=== PATIENT | female | born 1975 | race Caucasian/White ===

== ENCOUNTER 2020-11-15 08:45 | Emergency (ER) | payer MEDICAID ==
[~2020-11-15] VITALS: Ht 152.4 cm; Wt 126.0 kg
[~2020-11-15 08:45] MED LIST: AMLO10TA4 PO; LEVO75TA PO; LORA10TA7 PO; OMEP20CA4 PO
[2020-11-15 08:51] VITALS: BP 149/97
[2020-11-15] MEDS ORDERED: CYCL-1 PO (09:09)
[2020-11-15] MEDS ORDERED: IBUP-1984 PO (09:09)
[2020-11-15] MEDS ORDERED: orphenadrine citrate 60mg/2ml inj. IM ONE (09:10)
[2020-11-15] MEDS ORDERED: ketorolac tromethamine 15mg/ml inj. IM ONE (09:10)
== END 2020-11-15 09:29 | disposition home or self-care (01) ==
LOC: ER 08:45
DX: S39.012A Strain of muscle, fascia and tendon of lower back, initial encounter (principal); M54.89 Other dorsalgia; Z79.899 Other long term (current) drug therapy; X58.XXXA Exposure to other specified factors, initial encounter; Y93.89 Activity, other specified; Y92.89 Other specified places as the place of occurrence of the external cause; Y99.8 Other external cause status
CPT/HCPCS: 96372; 99284; J1885; J2360

== ENCOUNTER 2020-11-18 09:35 | Emergency (ER) | payer MEDICAID ==
[~2020-11-18] VITALS: Ht 152.4 cm; Wt 125.5 kg
[~2020-11-18 09:35] MED LIST changes: +CYCL-1 PO; +IBUP-1984 PO
[2020-11-18 09:43] VITALS: BP 141/88
== END 2020-11-18 11:41 | disposition home or self-care (01) ==
LOC: ER 09:36
DX: J06.9 Acute upper respiratory infection, unspecified (principal); Z20.822 Contact with and (suspected) exposure to COVID-19
CPT/HCPCS: 36415; 99283; U0003; U0005

== ENCOUNTER 2023-05-07 05:23 | Day surgery (SDC) | payer MEDICAID ==
[2023-05-01 10:49] LABS: BASOPHILS % (AUTO) 0.6 % (0-1); EOSINOPHILS # (AUTO) 0.2 X10'3 (0-0.9); LYMPHOCYTES # (AUTO) 1.5 X10'3 (1.1-4.8); LYMPHOCYTES % (AUTO) 21.6 % (21-51); MEAN CORPUSCULAR HEMOGLOBIN 27.8 PG (27.0-31.0); MEAN CORPUSCULAR HGB CONC 32.9 g/dL (33.0-36.5); MEAN CORPUSCULAR VOLUME 84.3 FL (78-98); MEAN PLATELET VOLUME 8.1 FL (7.4-10.4); MONOCYTES # (AUTO) 0.6 X10'3 (0-0.9); MONOCYTES % (AUTO) 8.9 % (2-12); NEUTROPHILS # (AUTO) 4.6 X10'3 (1.8-7.7); NEUTROPHILS % (AUTO) 65.9 % (42-75); PRE OP HEMATOCRIT 43.6 % (35.0-45.0); PRE OP HEMOGLOBIN 14.4 g/dL (12.0-16.0); PRE OP PLATELET COUNT 276 X10'3 (140-440); RED BLOOD COUNT 5.18 X10'6 (4.20-5.60); RED CELL DISTRIBUTION WIDTH 15.2 % (11.5-14.5)
[2023-05-01 11:03] LABS: HCG SERUM QL NEGATIVE
[2023-05-01 11:16] LABS: ALBUMIN 3.6 G/DL (3.4-5.0); ALBUMIN/GLOBULIN RATIO 0.9 (1.1-1.5); ALKALINE PHOSPHATASE 76 IU/L (46-116); BLOOD UREA NITROGEN 11 MG/DL (7-18); BUN/CREATININE RATIO 10.2 (10.0-20.0); CALCIUM 9.2 MG/DL (8.5-10.1); CHLORIDE 105 MMOL/L (99-107); CREATININE 1.08 MG/DL (0.40-0.90); PRE OP ALT 22 U/L (30-65); PRE OP ANION GAP 11 (8-16); PRE OP AST 17 U/L (10-37); PRE OP BILIRUB, TOTAL 0.5 MG/DL (0.0-1.0); PRE OP GLUCOSE 90 MG/DL (70-104); PRE OP POTASSIUM 3.9 MMOL/L (3.4-5.1); PRE OP SODIUM 141 MMOL/L (135-145); THYROID STIMULATING HORMONE 2.58 ulU/ml (0.34-4.50); TOTAL CARBON DIOXIDE 25.3 MMOL/L (24-32); TOTAL PROTEIN 7.4 G/DL (6.4-8.2); eGFR 55 ML/MIN
[~2023-05-07] VITALS: Ht 152.4 cm; Wt 129.1 kg
[~2023-05-07 05:23] MED LIST changes: +CETI-194 PO; -CYCL-1 PO; -IBUP-1984 PO; -LORA10TA7 PO; +MELO-100 PO
[2023-05-07 05:30] VITALS: BP 147/96; PULSE 82; RESP 16; TEMP 94.8; TEMP 97.8; O2SAT 99
[2023-05-07] MEDS: ceFAZolin inj. 3,000 MG in normal saline 100ml IV soln 100 ML IV ONE (05:39)
[2023-05-07] MEDS: famotidine 20mg tablet PO ONE (05:46)
[2023-05-07] MEDS: ringers solution, lacted 1,000 ML IV SCH (05:46)
[2023-05-07] MEDS ORDERED: BUPIVAcaine 0.5% inj/PF 60 ML ONE (06:55)
[2023-05-07] MEDS ORDERED: fentaNYL/PF 50MCG/1 ML 2ML syringe ONE (07:27)
[2023-05-07] MEDS ORDERED: MIDAZolam 1 MG/ML 5ML VIAL ONE (07:27)
[2023-05-07] MEDS: ketorolac trometh. 30mg/ml inj. ONE (07:54)
[2023-05-07] MEDS: LIDOcaine 1% w/EPI 1:100,000 inj. MDV 50 ML VIAL ONE (07:55)
[2023-05-07] MEDS: LIDOcaine 1% (10mg/ml)w/preservative inj. 20ml MDV ONE (07:55)
[2023-05-07] MEDS: BUPIVAcaine 0.5% inj/PF 30 ml vial IJ ONE (07:59)
[2023-05-07 08:15] VITALS: BP 121/75; PULSE 88; RESP 16; O2SAT 100
[2023-05-07 08:20] VITALS: BP 128/73; PULSE 88; RESP 20; O2SAT 100
[2023-05-07 08:30] VITALS: BP 119/74; PULSE 75; RESP 22; O2SAT 100
[2023-05-07] MEDS ORDERED: HYDROcodone/acetaminophen 10/325mg tab PO PRN (08:35)
[2023-05-07 08:40] VITALS: BP 131/73; PULSE 71; RESP 17; O2SAT 100
[2023-05-07 08:50] VITALS: BP 128/72; PULSE 73; RESP 22; O2SAT 100
== END 2023-05-07 08:55 | disposition home or self-care (01) ==
LOC: PAS 05:23
PROVIDERS: ATTEND Orthopaedic Surgery
DX: S83.241A Other tear of medial meniscus, current injury, right knee, initial encounter (principal); M22.42 Chondromalacia patellae, left knee; I10 Essential (primary) hypertension; E03.9 Hypothyroidism, unspecified; E66.01 Morbid (severe) obesity due to excess calories; K21.9 Gastro-esophageal reflux disease without esophagitis; Z79.890 Hormone replacement therapy; Z79.899 Other long term (current) drug therapy; Z90.49 Acquired absence of other specified parts of digestive tract; Z98.890 Other specified postprocedural states; Z68.43 Body mass index [BMI] 50.0-59.9, adult; X58.XXXA Exposure to other specified factors, initial encounter; Y93.89 Activity, other specified; Y92.89 Other specified places as the place of occurrence of the external cause; Y99.8 Other external cause status
CPT/HCPCS: 29881; 36415; 80053; 82948; 84443; 84703; 85025; 93005; J0690; J1885; J2250; J3010; J3490; J7120; S0020; Z7506; Z7512; A4215; A4618; A6449; A7000